=== PATIENT | male | born 1930 | race Asian ===

== ENCOUNTER 2020-05-09 14:36 | Inpatient (IN) | payer OTHER, SELFPAY ==
[~2020-05-09] VITALS: Ht 157.5 cm; Wt 49.9 kg
[2020-05-09 15:12] VITALS: Ht 157.5 cm; Wt 49.9 kg
[2020-05-09 16:50] LABS: PLATELET COUNT 214 x10^3mcL (152-348)
[2020-05-09 16:59] LABS: RED CELL DISTRIBUTION WIDTH 15.7 % (12.1-16.2)
[2020-05-09 17:40] LABS: ALT/SGPT 14 U/L (16-63); CHLORIDE SERUM 109 mmol/L (98-107); POTASSIUM SERUM 3.5 mmol/L (3.5-5.1); SODIUM SERUM 142 mmol/L (136-145)
[2020-05-09 18:42] LABS: microscopic required? YES; urine erythrocyte NEGATIVE (NEGATIVE)
[2020-05-09 18:42] LABS: CARBON DIOXIDE 19.2 mmol/L (21-32); CREATININE SERUM 1.4 mg/dL (0.7-1.3); GLUCOSE SERUM 175 mg/dL (74-106)
[2020-05-09 18:45] LABS: ALKALINE PHOSPHATASE 65 U/L (46-116); AST/SGOT 33 U/L (15-37); BILIRUBIN TOTAL 0.32 mg/dL (0.20-1.00)
[2020-05-09 18:58] LABS: ALBUMIN 1.3 g/dL (3.4-5.0); TOTAL PROTEIN, SERUM 5.3 g/dL (6.4-8.2)
[2020-05-09 23:27] LABS: BAND NEUTROPHIL 0 % (0-10); BASOPHIL 0 % (0-2); MONOCYTE 3 % (0-7); SEGMENTED NEUTROPHILS 67 % (37-75)
[2020-05-09 23:28] LABS: rbc morphology (normal/abnorm) ABNORMAL (NORMAL); schistocyte (helmet cell) 1+
[2020-05-09 23:29] LABS: PLATELET MORPHOLOGY PLATELETS NORMAL
[2020-05-10 06:19] VITALS: BP 80/35
[2020-05-10 08:37] LABS: ALKALINE PHOSPHATASE 57 U/L (46-116); ALT/SGPT 18 U/L (16-63); AST/SGOT 53 U/L (15-37); BILIRUBIN TOTAL 0.3 mg/dL (0.20-1.00); CARBON DIOXIDE 14.7 mmol/L (21-32); CHLORIDE SERUM 111 mmol/L (98-107); CREATININE SERUM 1.9 mg/dL (0.7-1.3); GLUCOSE SERUM 106 mg/dL (74-106); POTASSIUM SERUM 3.6 mmol/L (3.5-5.1); SODIUM SERUM 146 mmol/L (136-145)
[2020-05-10 08:39] LABS: ALBUMIN 1.1 g/dL (3.4-5.0); TOTAL PROTEIN, SERUM 4.9 g/dL (6.4-8.2)
[2020-05-10 15:54] LABS: PLATELET COUNT 119 x10^3mcL (152-348); RED CELL DISTRIBUTION WIDTH 16.5 % (12.1-16.2)
[2020-05-11 07:16] LABS: BASOPHIL % 0.1 % (0.2-1.5)
[2020-05-11 07:17] LABS: ALKALINE PHOSPHATASE 62 U/L (46-116); ALT/SGPT 28 U/L (16-63); AST/SGOT 84 U/L (15-37); BILIRUBIN TOTAL 0.5 mg/dL (0.20-1.00); CALCIUM 6.5 mg/dL (8.5-10.1); CHLORIDE SERUM 104 mmol/L (98-107); CREATININE SERUM 2.1 mg/dL (0.7-1.3); GLUCOSE SERUM 173 mg/dL (74-106); MAGNESIUM 2.1 mg/dL (1.8-2.4); POTASSIUM SERUM 4.8 mmol/L (3.5-5.1); SODIUM SERUM 135 mmol/L (136-145)
[2020-05-11 07:18] LABS: TOTAL PROTEIN, SERUM 5.2 g/dL (6.4-8.2)
[2020-05-11 07:29] LABS: RED CELL DISTRIBUTION WIDTH 16.4 % (12.1-16.2)
[2020-05-11 07:30] LABS: PLATELET COUNT 45 x10^3mcL (152-348)
[2020-05-11 09:59] VITALS: BP 58/26
[2020-05-11 12:43] LABS: rbc morphology (normal/abnorm) ABNORMAL (NORMAL)
[2020-05-12 11:15] LABS: MONOCYTE 4 % (0-7); SEGMENTED NEUTROPHILS 73 % (37-75)
[2020-05-12 11:21] LABS: rbc morphology (normal/abnorm) ABNORMAL (NORMAL)
== END 2020-05-11 10:13 | DRG 720 ==
LOC: ED 14:36 → IC 20:37
PROVIDERS: Emergency Medicine; ADMIT Hospitalist; ATTEND Hospitalist
PROC: 02HV33Z Insertion of Infusion Device into Superior Vena Cava, Percutaneous Approach (ICD-10-PCS; 2020-05-09)
PROC: B548ZZA Ultrasonography of Superior Vena Cava, Guidance (ICD-10-PCS; 2020-05-09)
PROC: XW13325 Transfusion of Convalescent Plasma (Nonautologous) into Peripheral Vein, Percutaneous Approach, New Technology Group 5 (ICD-10-PCS; principal; 2020-05-10)
DX: A41.9 Sepsis, unspecified organism (principal); U07.1 COVID-19; I21.A1 Myocardial infarction type 2; J69.0 Pneumonitis due to inhalation of food and vomit; J96.01 Acute respiratory failure with hypoxia; R65.21 Severe sepsis with septic shock; G93.41 Metabolic encephalopathy; N17.9 Acute kidney failure, unspecified; J12.82 Pneumonia due to coronavirus disease 2019; G20 Parkinson's disease; E11.9 Type 2 diabetes mellitus without complications; G30.9 Alzheimer's disease, unspecified; F02.80 Dementia in other diseases classified elsewhere, unspecified severity, without behavioral disturbance, psychotic disturbance, mood disturbance, and anxiety; Z66 Do not resuscitate; I10 Essential (primary) hypertension; N39.0 Urinary tract infection, site not specified
CPT/HCPCS: 36600; 82962; 85378; 87804; A4628; C9113; G0378; G0480; J0696; J1100; J1644; J1650; J1815; J2543; J3370; J3490; J7030; J7050; J7060; U0003